=== PATIENT | male | born 1980 | race Caucasian/White ===

== ENCOUNTER 2016-07-06 07:15 | Day surgery (SDC) | payer OTHER ==
[2016-07-04 12:37] VITALS: BMI 26.3
[2016-07-06] MEDS ORDERED: PROPOFOL 20 ML ONE ×2 (09:19)
[2016-07-06] MEDS ORDERED: MIDAZOLAM HCL 2 MG/2 ML SINGLE DOSE VIAL ONE (09:19)
--- NOTE | 2016-07-06 09:19 | HP ---
History & Physical Update - History History: No Change - Physical Physical: No Change - Assessment Assessment: No Change - Plan Plan: No Change
[2016-07-06] MEDS ORDERED: ACETAMINOPHEN 1000 MG/100 ML VIAL (NON FORMULARY) IVPB ONE (09:20)
[2016-07-06] MEDS ORDERED: IBUPROFEN 800 MG/8 ML IJ IVPB PRN (09:20)
[2016-07-06] MEDS ORDERED: DEXTROSE 5%-0.45% SALINE 1,000 ML IV SCH (09:30)
[2016-07-06] MEDS ORDERED: LEVOFLOXACIN 500 MG PREMIX BAG IVPB ONE (09:38)
[2016-07-06] MEDS ORDERED: LEVOFLOXACIN 500 MG IVPB 100 ML IVPB ONE (09:49)
[2016-07-06] MEDS ORDERED: LIDOCAINE HCL 2% JELLY 10 ML CARTRIDGE ONE (09:50)
[2016-07-06] MEDS ORDERED: LIDOCAINE HCL 2% JELLY 10 ML CARTRIDGE TP ONE (09:54)
[2016-07-06] MEDS ORDERED: ONDANSETRON 4 MG/2 ML VIAL IVPUSH PRN (10:14)
[2016-07-06] MEDS ORDERED: oxyCODONE HCL 5 MG TABLET PO PRN (10:14)
[2016-07-06] MEDS ORDERED: LACTATED RINGERS SOLUTION 1,000 ML IV SCH (10:15)
[2016-07-06] MEDS ORDERED: ACETAMINOPHEN INJECTION 0 ML IVPB ONE (10:16)
[2016-07-06] MEDS ORDERED: ACETAMINOPHEN INJECTION 100 ML IVPB ONE (10:18)
[2016-07-06 10:52] VITALS: TEMP 98.2
[2016-07-06 12:17] VITALS: BP 116/62; PULSE 87
[2016-07-06] MEDS ORDERED: oxyCODONE HCL 5 MG TABLET ONE (12:59)
--- NOTE | 2016-08-30 10:50 | OP ---
DATE OF OPERATION: 07/06/2016 PREOPERATIVE DIAGNOSIS: Difficulty voiding. POSTOPERATIVE DIAGNOSIS: Urethral stricture. PROCEDURES: Cystoscopy with dilation of urethral stricture. ANESTHESIA: General. SURGEON: Philip Mason MD PREOPERATIVE INDICATION: The patient is a 35-year-old male who is having difficulty emptying his bladder. He comes to the OR for a cystoscopy. OPERATION: The patient was brought to the OR, placed on the table in the supine position, given general anesthesia and IV antibiotics, and placed in the modified lithotomy position. The groin was prepped and draped sterilely. A timeout was performed. A cystoscopy was performed. Of note was a tightness along the distal urethra with a stricture at the bulbar urethra. This was dilated serially to 24-Finnish. The scope was then easily passed. The prostate otherwise appeared to be unremarkable. The bladder neck was intact. The bladder itself had some mild trabeculation, but however, no tumors or stones were seen. Both UOs were visualized. A Mayberry catheter was placed. After the scope was removed, the patient was woken up. PHILIP MASON M.D. [id number]
== END 2016-07-06 14:03 | disposition home or self-care (01) ==
LOC: JASU-SURG 07:15
PROVIDERS: ATTEND Urology
PROC: 0T7D8ZZ Dilation of Urethra, Via Natural or Artificial Opening Endoscopic (ICD-10-PCS; principal; 2016-07-06 09:00)
DX: N35.9 Urethral stricture, unspecified (principal)
CPT/HCPCS: 94760

== ENCOUNTER 2019-06-13 11:36 | Day surgery (SDC) | payer OTHER ==
[2019-06-13 12:31] VITALS: BMI 26.4
[2019-06-13 12:42] LABS: PH,URINE 6.5 (5.0-8.0); URINE APPEARANCE Clear; URINE BILIRUBIN Negative (NEGATIVE); URINE COLOR Yellow; URINE GLUCOSE (UA) Negative (NEGATIVE); URINE KETONE Negative (NEGATIVE); URINE LEUK ESTERASE Negative (NEGATIVE); URINE NITRITE Negative (NEGATIVE); URINE PROTEIN Trace (NEGATIVE); URINE UROBILINOGEN 0.2 mg/dL (0.2-1.0)
[2019-06-13] MEDS ORDERED: LIDOCAINE HCL 1%, 10 MG/ML (20ML VIAL) ONE (13:25)
[2019-06-13] MEDS ORDERED: LIDOCAINE HCL 2% JELLY 10 ML CARTRIDGE ONE (13:25)
[2019-06-13] MEDS ORDERED: HEPARIN NA (PORCINE) 5,000 UNITS/ML 1ML VIAL ONE (13:25)
[2019-06-13] MEDS ORDERED: LIDOCAINE HCL/PF 2% SDV 5ML VIAL ONE (14:08)
[2019-06-13] MEDS ORDERED: PROPOFOL 20 ML ONE ×2 (14:09)
[2019-06-13] MEDS ORDERED: SUCCINYLCHOLINE CHLORIDE 200 MG/10 ML SYRINGE ONE (14:09)
[2019-06-13] MEDS ORDERED: MIDAZOLAM HCL 2 MG/2 ML SINGLE DOSE VIAL ONE ×2 (14:09)
[2019-06-13] MEDS ORDERED: EPHEDRINE SULFATE/0.9% NACL/PF 50 MG/10 ML SYRINGE NR ONE (14:09)
[2019-06-13] MEDS ORDERED: ceFAZolin SODIUM 1 GM VIAL ONE (14:41)
[2019-06-13] MEDS ORDERED: CLINDAMYCIN 900 MG PREMIX BAG IVPB ONE (14:43)
[2019-06-13] MEDS ORDERED: LIDOCAINE HCL 1%, 10 MG/ML (20ML VIAL) NR ONE ×2 (14:45→14:46)
[2019-06-13] MEDS ORDERED: HEPARIN NA (PORCINE) 5,000 UNITS/ML 1ML VIAL IP ONE (14:46)
[2019-06-13] MEDS ORDERED: SODIUM BICARBONATE 8.4% 50 MEQ/50 ML VIAL IV ONE (14:46)
--- NOTE | 2019-06-13 15:04 | HP ---
History & Physical Update - History History: No Change - Physical Physical: No Change - Assessment Assessment: No Change - Plan Plan: No Change (06/12/2019)
[2019-06-13] MEDS ORDERED: ACETAMINOPHEN 1000 MG/100 ML VIAL (NON FORMULARY) IVPB ONE ×2 (15:14→16:00)
[2019-06-13] MEDS ORDERED: DEXTROSE 5%-0.45% SALINE 1,000 ML IV SCH (15:15)
[2019-06-13] MEDS ORDERED: IBUPROFEN 800 MG/8 ML IJ IVPB SCH (15:15)
[2019-06-13] MEDS ORDERED: ACETAMINOPHEN INJECTION 100 ML IVPB ONE (16:04)
--- NOTE | 2019-06-13 16:14 | OP ---
DATE OF OPERATION: 06/13/2019 PREOPERATIVE DIAGNOSIS: Interstitial cystitis, urinary frequency. POSTOPERATIVE DIAGNOSIS: Interstitial cystitis, urinary frequency. PROCEDURE: Cystoscopy, hydrodistention, and instillation of bladder medication. SURGEON: Philip Mason MD ESTIMATED BLOOD LOSS: None. FINDINGS: Cystitis. DRAINS: None. PREOPERATIVE INDICATIONS: The patient is a 38-year-old male who suffers from urinary frequency and interstitial cystitis. He comes in today for cysto, hydrodistention, and bladder instillation. OPERATION: The patient was brought to the OR, placed on the table in the supine position, given general anesthesia and IV antibiotics and placed in the modified lithotomy position. The groin was prepped and draped sterilely. Timeout was performed. Cystoscopy was performed with a 22-Kazakh cystoscope. The urethra appeared to be normal. The prostate was open and the bladder neck was intact. The bladder itself had some trabeculation throughout. Both UOs were seen and were clear with clear efflux. No tumors or stones were seen. The bladder was filled and emptied over 10 minutes to help increase bladder capacity. At the end of the case, instillation of medicine including lidocaine, heparin, bicarbonate, and saline were infused and left inside. Patient was woken up. PHILIP MASON M.D. [id number]
[2019-06-13] MEDS ORDERED: PROMETHAZINE HCL 25 MG/1 ML VIAL IVPUSH PRN (16:25)
[2019-06-13] MEDS ORDERED: ONDANSETRON 4 MG/2 ML VIAL IVPUSH PRN (16:25)
[2019-06-13] MEDS ORDERED: LACTATED RINGERS SOLUTION 1,000 ML IV SCH (16:30)
[2019-06-13 18:06] VITALS: BP 140/83; PULSE 67; TEMP 97.8
== END 2019-06-13 17:45 | disposition home or self-care (01) ==
LOC: JASU-SURG 11:36
PROVIDERS: ATTEND Urology
PROC: 3E0K8GC Introduction of Other Therapeutic Substance into Genitourinary Tract, Via Natural or Artificial Opening Endoscopic (ICD-10-PCS; principal; 2019-06-13 14:00)
PROC: 0T7B8ZZ Dilation of Bladder, Via Natural or Artificial Opening Endoscopic (ICD-10-PCS; 2019-06-13 14:00)
DX: N30.10 Interstitial cystitis (chronic) without hematuria (principal); R35.0 Frequency of micturition
CPT/HCPCS: 81003; 87086; J0131; J1644